=== PATIENT | male | born 1960 | race Caucasian/White ===

== ENCOUNTER 2020-10-11 13:15 | Emergency (ER) | payer OTHER ==
[~2020-10-11] VITALS: Ht 175.3 cm; Wt 80.3 kg
[2020-10-11 13:17] VITALS: BP 137/86
--- NOTE | 2020-10-11 13:28 | NUR ---
PT AMBULATED TO BED 08.
--- NOTE | 2020-10-11 13:33 | NUR ---
KISHOR VILLANUEVA AT BEDSIDE EXAMINING PATIENT
[2020-10-11] MEDS: LIDOCAINE MPF 1% 10 MG/ML VIAL INJ ONE (13:53)
--- NOTE | 2020-10-11 14:00 | NUR ---
59 y/o male c/o left second digit laceration x 1 hour. as per patient, he was cutting wood using a table saw and accidentally lacerated his finger. pain 3/10. active bleeding noted, wrapped in gauze. pmh: none meds: none nka
--- NOTE | 2020-10-11 14:11 | NUR ---
PT TAKEN TO XRAY VIA W/C
[2020-10-11] MEDS ORDERED: IBUP-2213 PO (14:12)
--- NOTE | 2020-10-11 14:16 | NUR ---
PT RETURNED FROM XRAY
[2020-10-11] MEDS: BACITRACIN OINT 500 UNITS/GM PKT TP ONE (14:49)
--- NOTE | 2020-10-11 14:55 | NUR ---
PT'S INDEX FINGER ON LEFT HAND WAS WRAPPED WITH BACITRACIN, NONADHERENT DRESSING, GAUZE ROLL, AND KOFLEX. [facility] NOTIFIED.
== END 2020-10-11 14:55 | disposition home or self-care (01) ==
LOC: MED 13:15
DX: S61.211A Laceration without foreign body of left index finger without damage to nail, initial encounter (principal); Z88.8 Allergy status to other drugs, medicaments and biological substances; Z90.49 Acquired absence of other specified parts of digestive tract; W27.0XXA Contact with workbench tool, initial encounter; Y93.89 Activity, other specified; Y92.89 Other specified places as the place of occurrence of the external cause; Y99.8 Other external cause status
CPT/HCPCS: 12001; 73140; 90471; 90715; 99283; J2001

== ENCOUNTER 2020-10-20 16:16 | Emergency (ER) | payer OTHER ==
[~2020-10-20] VITALS: Ht 175.3 cm; Wt 80.7 kg
[~2020-10-20 16:16] MED LIST: IBUP-2213 PO
[2020-10-20 16:20] VITALS: BP 117/65
--- NOTE | 2020-10-20 16:25 | NUR ---
PT TAKEN TO BED 5.
--- NOTE | 2020-10-20 16:36 | NUR ---
59/M presents to ED with c/o right index finger pain. Patient states he was seen here on 10/11 and had stitches put in due to a laceration. Patient states yesterday he began feeling pain in the same finger and believes it is "infected." Finger does not appear red, no discharge from site noted, site is slightly swollen and tender to touch. Patient unable to fully bend finger due to pain and swelling, cap refill less than 2 seconds, denies taking anything at home for pain.
[2020-10-20] MEDS ORDERED: LIDOCAINE MPF 2% 100 MG/5 ML VIAL INJ ONE (16:55)
[2020-10-20] MEDS ORDERED: LIDOCAINE 2% 1000 MG/50 ML VIAL INJ ONE ×2 (17:08→17:10)
[2020-10-20] MEDS ORDERED: CEPH-588 PO (17:28)
[2020-10-20] MEDS ORDERED: cefTRIAXone 1,000 MG in LIDOCAINE MPF 1% 2.1 ML IM ONE (17:30)
[2020-10-20] MEDS ORDERED: cefTRIAXone 1,000 MG VIAL ONE (17:31)
[2020-10-20] MEDS ORDERED: LIDOCAINE MPF 1% 5 ML ONE (17:32)
[2020-10-20] MEDS ORDERED: BACITRACIN OINT 500 UNITS/GM PKT TP ONE (17:40)
[2020-10-20 17:51] VITALS: BP 117/65
== END 2020-10-20 17:50 | disposition home or self-care (01) ==
LOC: MED 16:16
DX: L02.512 Cutaneous abscess of left hand (principal); L08.9 Local infection of the skin and subcutaneous tissue, unspecified
CPT/HCPCS: 26010; 96372; 99283; J0696; J2001